=== PATIENT | female | born 1945 | race Caucasian/White ===

== ENCOUNTER 2022-06-03 14:12 | Inpatient (IN) | payer MEDICARE, OTHER, SELFPAY ==
[2022-06-03] VITALS (15 sets, daily range): BP systolic 154–224; BP diastolic 58–101; PULSE 63–87; RESP 14–18; TEMP 36.7–36.8; O2SAT 97–100; BMI 30.9; BMI 31.6
--- NOTE | ~2022-06-03 | XR_ITS ---
EXAMINATION: XR CHEST CLINICAL INFORMATION: Chest pain COMPARISON: None TECHNIQUE: AP portable upright view of the chest was obtained. FINDINGS: ECG leads overlie the chest. Heart and mediastinum grossly normal. No pulmonary edema. Mild bronchial wall thickening. No focal pneumonia. Blunting of the left lateral costophrenic angle on rotated radiograph most likely a normal epicardial fat pad. If symptoms persist suggest 2 view chest in follow-up. Nonobstructive gas pattern. No acute chest wall finding. XR/XR chest 1V IMPRESSION: Bronchial wall thickening on limited portable radiography.
--- NOTE | ~2022-06-03 | CT_ITS ---
EXAMINATION: CT HEAD WITHOUT CONTRAST CLINICAL INFORMATION: Left-sided weakness, stroke protocol. COMPARISON: None TECHNIQUE: Imaging was performed from the skull base to vertex without intravenous administration of contrast. This CT examination was performed using dose optimization techniques as appropriate, variously including the following: *Automated exposure control *Adjustment of mA and/or kV according to patient size (this includes techniques or standardized protocols for targeted exams where dose is matched to indication/reason for exam; i.e. extremities or head) *Use of iterative reconstruction technique Total exam dose length product: 723 mGy-cm FINDINGS: No intra or extra-axial fluid collection, hemorrhage, or mass. No ventriculomegaly. No midline shift or herniation. Basal cisterns are patent. Villegas-white matter differentiation is maintained. No territorial encephalomalacia. No significant volume loss. Patchy periventricular and deep white matter hypoattenuation is consistent with mild small vessel ischemic changes. Small linear focus of hypoattenuation in the body of the caudate extending into the lentiform nucleus compatible with a prior small infarct. Similar finding involving the left escudero radiata. No calvarial fracture or soft tissue abnormality. Partial opacification of a few inferior mastoid air cells bilaterally, nonspecific. Visualized paranasal sinuses are normally aerated. Status post bilateral lens extractions. CT/CT head for stroke IMPRESSION: 1. No intracranial hemorrhage. No acute edematous territorial infarct identified. 2. Mild chronic small vessel ischemic white matter change and small prior lacunar infarcts in the right basal ganglia and left escudero radiata. This critical result was discussed with Dr. Kamran Sam at 2:29 PM on 06/03/2022 and it was ascertained that the content and urgency of the report was understood at the time of direct communication.
--- NOTE | ~2022-06-03 | MR_ITS ---
EXAMINATION: MRI BRAIN WITHOUT CONTRAST CLINICAL INFORMATION: Status post tPA. Stroke. COMPARISON: CT angiogram head and neck 06/03/2022. TECHNIQUE: Multiplanar MR imaging of the brain was performed without contrast. FINDINGS: There is an acute infarct involving the posterior limb of the right internal capsule best depicted on axial image 19 of 32 series 3. Scattered nonspecific foci of T2 FLAIR signal hyperintense are also visualized within the periventricular white matter that most likely represent a chronic manifestation of small vessel ischemia. No pathological magnetic susceptibility artifact. Intracranial vascular flow voids are maintained. There is no intracranial mass effect or midline shift. No abnormal extra-axial collection. Lateral and third ventricles are proportionate to the subarachnoid spaces. No hydrocephalus. Midline structures including the cervicomedullary junction are normal. No acute bone marrow signal changes. There bilateral mastoid effusions. Mild paranasal sinus mucosal thickening within ethmoid air cells. Globes and orbits are symmetric. MR/MR head/brain wo con IMPRESSION: There is a small acute lacunar infarct involving the posterior limb of the right internal capsule. Scattered chronic small vessel ischemic changes are also visualized primarily within the periventricular white matter. No evidence of acute hemorrhage.
--- NOTE | ~2022-06-03 | CT_ITS ---
EXAMINATION: CTA NECK WITH CONTRAST (STROKE) CTA BRAIN WITH CONTRAST (STROKE) CLINICAL INFORMATION: Left-sided weakness, stroke. COMPARISON: CT scan of the head earlier 06/03/2022. TECHNIQUE: Test bolus series followed by intravenous administration 70 mL of Omnipaque 350. Helical imaging was performed in the axial plane from the mediastinum to the skull vertex. A delayed postcontrast CT scan of the head was obtained. The degree of stenosis is based off NASCET criteria. The data was processed at the fiber technologist workstation for generation of MIP images. Three-dimensional volume rendered reformatted images were also generated at an offline 3-D workstation. This CT examination was performed using dose optimization techniques as appropriate, variously including the following: *Automated exposure control *Adjustment of mA and/or kV according to patient size (this includes techniques or standardized protocols for targeted exams where dose is matched to indication/reason for exam; i.e. extremities or head) *Use of iterative reconstruction technique DLP: 1578 mGy-cm. FINDINGS: CT Head: There is equivocal low-attenuation in the left mid jese (image 17/54, series 13) which may be artifact. There is no evidence of acute intracranial hemorrhage or territorial infarction elsewhere. No abnormal mass-effect or midline shift is seen. Villegas to white matter differentiation is well preserved. No extra-axial fluid collections are identified. There is no abnormal enhancement. The ventricles and sulci are commensurately prominent consistent with diffuse volume loss. There are scattered areas of low-attenuation in the periventricular and subcortical white matter consistent with chronic microvascular ischemic changes. The study redemonstrates areas of low-attenuation in the basal ganglia bilaterally, consistent with chronic infarcts. There are no acute osseous findings. There is hyperostosis frontalis interna. There have been bilateral lens extractions. There is mild fluid at the bilateral mastoid tips. There is slight irregularity of the nasal bones bilaterally, most consistent with sequelae of prior trauma. The paranasal sinuses are well-aerated. CTA Neck: There is a classic configuration of the aortic arch. The great vessels of the neck are patent; the origins of the subclavian arteries are patent bilaterally. The common carotid arteries are patent. There are mild atheromatous calcifications at the right carotid bifurcation, without significant stenosis. The cervical internal carotid arteries are patent bilaterally. The origins of the vertebral arteries are well-demonstrated bilaterally. The left vertebral artery is dominant. Both vertebral arteries are patent throughout their cervical course extending intradurally. Nonvascular: The visualized lungs are well aerated. The thyroid gland is normal. There is no cervical lymphadenopathy; there are small lymph nodes at multiple levels in the neck bilaterally. There are mild spondylitic and facet arthropathic changes in the cervical spine. CTA Head: There are mild atheromatous calcifications of the cavernous internal carotid arteries bilaterally, but the vessels are patent. The carotid termini appear normal. The middle and anterior cerebral arteries bilaterally demonstrate normal caliber with no evidence of focal stenosis, aneurysm or vascular malformation. There is normal arborization of the middle cerebral artery branches. The anterior communicating artery is normal. In the posterior circulation, the left vertebral artery is dominant. The vertebral arteries intradurally have uniform caliber. The basilar artery appears normal. There is a origin of the left posterior cerebral artery. There is mild narrowing at the P1/P2 segment of the left posterior cerebral artery and there is also irregular caliber of the bilateral P2 and P3 segments of the posterior cerebral arteries. There is irregular caliber of the bilateral superior cerebellar arteries. The venous sinuses opacify normally. CT/CT angio head neck stroke IMPRESSION: CT head and neck: 1. There is an equivocal area of low attenuation in the left lower jese, which is likely artifact. If indicated, this could be further evaluated with MRI scan of the brain. There is no evidence of acute infarction elsewhere. 2. There is no acute hemorrhage. There are no masses or areas of abnormal enhancement. 3. There is diffuse volume loss and there are chronic microvascular ischemic changes and chronic infarcts. CTA head and neck: 1. There is minimal atheromatous calcification in the neck vasculature. There are no flow-limiting stenoses. 2. Intracranially there are no vascular malformations or aneurysms. 3. Mild irregular caliber is demonstrated in the posterior cerebral arteries. There are no focal occlusions. This critical result was discussed with Dr. Kamran Sam by telephone on 06/03/2022 at 3:03 PM and it was ascertained that the content and urgency of the report was understood at the time of direct communication.
--- NOTE | 2022-06-03 14:18 | ECG_ITS ---
Test Reason : stroke Blood Pressure : / mmHG Vent. Rate : 082 BPM Atrial Rate : 082 BPM P-R Int : 174 ms QRS Dur : 078 ms QT Int : 394 ms P-R-T Axes : 077 034 076 degrees QTc Int : 460 ms Normal sinus rhythm Nonspecific ST abnormality Abnormal ECG No previous ECGs available Referred By: Kamran Sam Electronically Signed By:ANIA FREIRE MD
[2022-06-03 14:23] LABS: Glucose, Whole Blood 131 mg/dL (60-115)
[2022-06-03 14:25] LABS: Prothrombin Time Whole Bld POC 11.3 sec (11.1-13.5); ~PT, ~INR - Anti Coag Clinic 0.9 (0.9-1.1)
--- NOTE | 2022-06-03 14:31 | ED.NEUROSD ---
HPI - Neuro Symptoms/Deficit General Chief Complaint: Neuro Symptoms/Deficit Stated Complaint: L SIDE FACE DROOP,TROUBLE FINDING WORDS,NAP @ NOON Time Seen by Provider: 06/03/22 14:16 Source: EMS Mode of arrival: EMS History of Present Illness HPI Narrative: Patient was seen on arrival to the emergency department, she presented there with the left-sided weakness slurred speech she went to take a nap around noontime when she woke up are 130 with the facial droop left-sided weakness. Patient is not on anticoagulation she has no significant medical problem but hypertension Onset (ago): hour(s) (1) Location: speech, left arm and left leg History of same: No Severity: moderate Quality: weak Relieving factors: none Exacerbating factors: none Context: sudden onset Associated symptoms: denies other symptoms Related Data Home Medications Medication Instructions Recorded Confirmed losartan 50 mg tablet 1 tab DAILY 06/03/22 06/03/22 prochlorperazine maleate 10 mg 1 tab PO DAILY 06/03/22 06/03/22 tablet tobramycin 0.3 % eye drops 2 drp ophthalmic (eye) TID 06/03/22 06/03/22 Allergies Allergy/AdvReac Type Severity Reaction Status Date / Time No Known Allergies Allergy Verified 06/03/22 14:17 Review of Systems Constitutional: Constitutional: Reports no additional constitutional complaints Eyes: Eyes: Reports no additional eye complaints Musculoskeletal: Musculoskeletal: Reports no additional musculoskeletal complaints Neurologic: Reports system reviewed and no additional complaints, except as documented and Reports as per HPI [facility] Past Medical History [facility] Narrative: hypertension Medical History (Updated 06/03/22 @ 15:12 by Kamran Sam MD) Facial tic HTN (hypertension) Social History Social History Alcohol intake: never Patient Tobacco Use Status: Former Tobacco user Smoked in Last 30 Days: Yes Use of substances other than those prescribed or required for medical reasons: No Advance Directives: No Advance Directives Information Provided: No Physical Exam Vital Signs: Vital Signs: Last Vital Signs Temp 98.3 F 06/03/22 16:54 Pulse 77 06/03/22 18:39 Resp 18 06/03/22 18:39 BP 193/78 H 06/03/22 18:39 Pulse Ox 98 06/03/22 18:39 O2 Del Method 06/03/22 18:39 BMI result Body Mass Index 30.9 Const: General: cooperative Nutritional Appearance: average body habitus Orientation/consciousness: patient oriented x3 HEENT: Head: Yes normal to inspection Ears: hearing grossly normal bilaterally Face and sinus: Yes other ( left facial droop) Mouth: Normal oral and palatal mucosa present Neck: Neck: Yes normal visual inspection and Yes full ROM Chest: Chest palpation & inspection: normal inspection of the chest Resp: Effort & Inspection: normal respiratory effort and able to speak in complete sentences Auscultation: clear to auscultation bilaterally Cardio: Jugular venous distension: no JVD Rate: regular rate Rhythm: regular rhythm GI: Inspection: Yes normal to inspection Palpation (GI): Soft to palpation and not firm Percussion: Yes normal to percussion : General: Yes no CVA tenderness Back/Spine/Pelvis: Back: no CVA tenderness Neuro: Other: she a is awake and alert he has a left facial droop left arm drift left leg weakness General: patient oriented x3 Course Course Course Narrative: patient presented with the deficit within the window for tPA, risk and benefit discussed with the patient and the granddaughter, they both agree with the tPA is a we will go ahead the administer the tPA Reevaluation(s) Reevaluation #1: TPA is infusing family at bed side granddaughter Time: 15:12 Reevaluation #2: seen by neuroi also Dr Hanny BECKWITH completed Time: 16:06 Reevaluation #3: Spoke with ICU attending Dr Hamilton Time: 16:06 MDM - Neuro Symptoms/Deficit Lab Data Result diagrams: 06/03/22 14:50 06/03/22 14:50 Labs: Lab Results 06/03/22 06/03/22 06/03/22 Range/Units 14:18 14:21 14:50 WBC 7.5 (4.8-10.8) X10*3/uL RBC 4.58 (4.20-5.50) X10*6/uL Hgb 12.9 (12.0-16.0) g/dl Hct 39.3 (37.0-47.0) % MCV 85.8 (80.0-98.0) fL MCH 28.2 (27.0-33.0) pg MCHC 32.8 (31.0-35.0) g/dl RDW 13.7 (11.0-16.0) % Plt Count 211 (160-400) X10*3/uL MPV 8.3 L (9.4-12.3) fL Immature Gran % (Auto) 0.4 (0.0-0.4) % Neut % (Auto) 52.5 (45-73) % Lymph % (Auto) 34.1 (20-40) % Elliott % (Auto) 9.4 (2-11) % Eos % (Auto) 3.2 (0-4) % Baso % (Auto) 0.4 (0-2) % Lymph # (Auto) 2.6 (1.2-4.9) X10*3/uL Elliott # (Auto) 0.7 (0.1-1.2) X10*3/uL Eos # (Auto) 0.2 (0.0-0.4) X10*3/uL Baso # (Auto) 0.0 (0.0-0.2) X10*3/uL Abs Immat Gran (auto) 0.03 (0.00-0.03) X10*3/uL Absolute Neuts (auto) 4.0 (2.0-8.3) x10*3/uL Absolute Nucleated RBC 0.000 (0.0-0.012) X10*3/uL Nucleated RBC % (auto) 0.0 (0.0-0.2) /100WBC PT (10.0-13.1) SEC Whole Blood PT 11.3 (11.1-13.5) sec INR (0.9-1.1) Whole Blood INR 0.9 (0.9-1.1) Sodium (135-145) mmol/L Potassium (3.3-5.1) mmol/L Chloride (96-108) mmol/L Carbon Dioxide (22-29) mmol/L Anion Gap (12-20) BUN (9-16) mg/dL Creatinine (0.5-1.4) mg/dL Estim Creat Clear Calc Estimated GFR POC Glucose 131 H (60-115) mg/dL Random Glucose (60-115) mg/dL Calcium (8.4-10.2) mg/dL Troponin I High Sens (<3.5-17.0) ng/L COVID-19 (GENE) (Negative) COVID-19 Clin Com 07/14/22 07/14/22 07/14/22 Range/Units 14:50 14:50 14:50 WBC (4.8-10.8) X10*3/uL RBC (4.20-5.50) X10*6/uL Hgb (12.0-16.0) g/dl Hct (37.0-47.0) % MCV (80.0-98.0) fL MCH (27.0-33.0) pg MCHC (31.0-35.0) g/dl RDW (11.0-16.0) % Plt Count (160-400) X10*3/uL MPV (9.4-12.3) fL Immature Gran % (Auto) (0.0-0.4) % Neut % (Auto) (45-73) % Lymph % (Auto) (20-40) % Elliott % (Auto) (2-11) % Eos % (Auto) (0-4) % Baso % (Auto) (0-2) % Lymph # (Auto) (1.2-4.9) X10*3/uL Elliott # (Auto) (0.1-1.2) X10*3/uL Eos # (Auto) (0.0-0.4) X10*3/uL Baso # (Auto) (0.0-0.2) X10*3/uL Abs Immat Gran (auto) (0.00-0.03) X10*3/uL Absolute Neuts (auto) (2.0-8.3) x10*3/uL Absolute Nucleated RBC (0.0-0.012) X10*3/uL Nucleated RBC % (auto) (0.0-0.2) /100WBC PT 11.0 (10.0-13.1) SEC Whole Blood PT (11.1-13.5) sec INR 1.0 (0.9-1.1) Whole Blood INR (0.9-1.1) Sodium 136 (135-145) mmol/L Potassium 3.9 (3.3-5.1) mmol/L Chloride 104 (96-108) mmol/L Carbon Dioxide 24 (22-29) mmol/L Anion Gap 12 (12-20) BUN 14 (9-16) mg/dL Creatinine 1.25 (0.5-1.4) mg/dL Estim Creat Clear Calc 40.2 Estimated GFR 42 POC Glucose (60-115) mg/dL Random Glucose 124 H (60-115) mg/dL Calcium 8.3 L (8.4-10.2) mg/dL Troponin I High Sens < 3.5 (<3.5-17.0) ng/L COVID-19 (GENE) (Negative) COVID-19 Clin Com 06/03/22 Range/Units 14:56 WBC (4.8-10.8) X10*3/uL RBC (4.20-5.50) X10*6/uL Hgb (12.0-16.0) g/dl Hct (37.0-47.0) % MCV (80.0-98.0) fL MCH (27.0-33.0) pg MCHC (31.0-35.0) g/dl RDW (11.0-16.0) % Plt Count (160-400) X10*3/uL MPV (9.4-12.3) fL Immature Gran % (Auto) (0.0-0.4) % Neut % (Auto) (45-73) % Lymph % (Auto) (20-40) % Elliott % (Auto) (2-11) % Eos % (Auto) (0-4) % Baso % (Auto) (0-2) % Lymph # (Auto) (1.2-4.9) X10*3/uL Elliott # (Auto) (0.1-1.2) X10*3/uL Eos # (Auto) (0.0-0.4) X10*3/uL Baso # (Auto) (0.0-0.2) X10*3/uL Abs Immat Gran (auto) (0.00-0.03) X10*3/uL Absolute Neuts (auto) (2.0-8.3) x10*3/uL Absolute Nucleated RBC (0.0-0.012) X10*3/uL Nucleated RBC % (auto) (0.0-0.2) /100WBC PT (10.0-13.1) SEC Whole Blood PT (11.1-13.5) sec INR (0.9-1.1) Whole Blood INR (0.9-1.1) Sodium (135-145) mmol/L Potassium (3.3-5.1) mmol/L Chloride (96-108) mmol/L Carbon Dioxide (22-29) mmol/L Anion Gap (12-20) BUN (9-16) mg/dL Creatinine (0.5-1.4) mg/dL Estim Creat Clear Calc Estimated GFR POC Glucose (60-115) mg/dL Random Glucose (60-115) mg/dL Calcium (8.4-10.2) mg/dL Troponin I High Sens (<3.5-17.0) ng/L COVID-19 (GENE) Negative (Negative) COVID-19 Clin Com See Note Imaging Data CT scan - head: Radiologist's impression: ent with mild small vessel ischemic changes. Small linear focus of hypoattenuation in the body of the caudate extending into the lentiform nucleus compatible with a prior small infarct. Similar finding involving the left escudero radiata. No calvarial fracture or soft tissue abnormality.? Partial opacification of a few inferior mastoid air cells bilaterally, nonspecific. Visualized paranasal sinuses are normally aerated. Status post bilateral lens extractions. CT/CT head for stroke IMPRESSION: ? 1. No intracranial hemorrhage. No acute edematous territorial infarct identified. 2. Mild chronic small vessel ischemic white matter change and small prior lacunar infarcts in the right basal ganglia and left escudero radiata. ? This critical result was discussed with Dr. Kamran Sam at 2:29 PM on 06/03/2022 and it was ascertained that the content and urgency of the report was understood at the time of direct communication. ? ? Dictated By: Dread Mccarthy Signed By: <Electronically signed by Gabriel Mccarthy in OV> 06/03/22 1433 ECG Data Pacemaker model: normal sinus rhythm rate [address]-T changes NIH Stroke Scale Internal: Initial- Upon Arrival Level of Consciousness: Alert Level of Consciousness Questions: Answers both questions correctly Level of Consciousness Commands: Performs both tasks correctly Best Gaze: Normal Visual: No visual loss Facial Palsy: Minor paralyis Motor Arm (Right): No drift Motor Arm (Left): Drift Motor Leg (Right): Some effort against gravity Motor Leg (Left): Drift Limb Ataxia: Absent Sensory: Normal Best Language: Mild to moderate aphasia Dysarthia: Mild to moderate dysarthria Extinction and Inattention: No abnormality Score: 7 Critical Care Time Critical Care Time Critical Care Time: Yes Total Critical Care Time: 60 Attestation: speaking to EMS/Family/specialist/administred TPA Discharge Plan Discharge Clinical Impression: Cerebrovascular accident Patient Disposition: Admitted As Inpatient
[2022-06-03] MEDS: iohexoL 350 MG/ML 100 ML INFUS..BTL IV (14:40)
--- NOTE | 2022-06-03 14:41 | PC.NURSE ---
CONSENT VERBALLY OBTAINED BY MD AT BEDSIDE.
[2022-06-03 14:55] LABS: MANUAL DIFF FLAG NO
[2022-06-03 14:58] LABS: Basophils Percent Auto 0.4 % (0-2); Eosinophils Absolute Auto 0.2 X10*3/uL (0.0-0.4); Eosinophils Percent Auto 3.2 % (0-4); Hematocrit 39.3 % (37.0-47.0); Hemoglobin 12.9 g/dl (12.0-16.0); Imm Gran Abs Auto 0.03 X10*3/uL (0.00-0.03); Imm Gran Pct Auto 0.4 % (0.0-0.4); Lymphocytes Absolute Auto 2.6 X10*3/uL (1.2-4.9); Lymphocytes Percent Auto 34.1 % (20-40); Mean Corpuscular HGB Conc 32.8 g/dl (31.0-35.0); Mean Corpuscular Hemoglobin 28.2 pg (27.0-33.0); Mean Corpuscular Volume 85.8 fL (80.0-98.0); Mean Platelet Volume 8.3 fL (9.4-12.3); Monocytes Absolute Auto 0.7 X10*3/uL (0.1-1.2); Monocytes Percent Auto 9.4 % (2-11); Neutrophils Percent Auto 52.5 % (45-73); Platelet Count 211 X10*3/uL (160-400); Red Blood Count 4.58 X10*6/uL (4.20-5.50); Red Cell Distribution Width 13.7 % (11.0-16.0); White Blood Count 7.5 X10*3/uL (4.8-10.8)
[2022-06-03 15:10] LABS: Anion Gap 12 (12-20); Blood Urea Nitrogen 14 mg/dL (9-16); Calcium 8.3 mg/dL (8.4-10.2); Carbon Dioxide 24 mmol/L (22-29); Chloride 104 mmol/L (96-108); Creatinine Clr Calc Pharmacy 40.2; Estimated Glomerular Filt Rate 42; Glucose Random 124 mg/dL (60-115); Potassium 3.9 mmol/L (3.3-5.1); Sodium 136 mmol/L (135-145)
[2022-06-03 15:17] LABS: COVID-19 Test Negative (Negative); IDNOW Serial# 16C4AD1C
[2022-06-03 15:20] LABS: Troponin-I High Sensitivity < 3.5 ng/L (<3.5-17.0)
[2022-06-03 15:26] LABS: Stroke Lab Use COMPLETE
--- NOTE | 2022-06-03 16:22 | PM.NEUROCN ---
History of Present Illness Data of Consult Service Date: 06/03/22 Primary Care Provider: Yeyo Gore MD [facility] Reason for consult: Cerebral infarcts 76 years old woman with underlying history of hypertension came to hospital with new onset of slurred speech and left-sided weakness. It was acute in she was evaluated for acute stroke and after appropriate consideration was treated with intravenous tPA. I saw her afterwards. At that time her family was around her and she was feeling much better but still had some left-sided weakness. There was no nausea or vomiting headache blurred vision or double vision. Speech has improved. Review of Systems Review of Systems: No recent cold or flu-like illness PMFSH Past Medical History Medical History (Updated 06/03/22 @ 15:12 by Kamran Sam MD) Facial tic HTN (hypertension) Social History Social History Alcohol intake: never Patient Tobacco Use Status: Former Tobacco user Smoked in Last 30 Days: Yes Use of substances other than those prescribed or required for medical reasons: No Advance Directives: No Advance Directives Information Provided: No Meds Allergies Allergy/AdvReac Type Severity Reaction Status Date / Time No Known Allergies Allergy Verified 06/03/22 14:17 Physical Exam Vital Signs: Vital Signs: Last Vital Signs Pulse 69 06/03/22 16:00 Resp 16 06/03/22 16:00 BP 186/82 H 06/03/22 16:00 Pulse Ox 99 06/03/22 16:00 O2 Del Method 06/03/22 16:00 BMI result Body Mass Index 30.9 Neuro: Other: She was alert and awake with normal spontaneity of speech fluency comprehension and affect. There was mild left-sided facial flatness. There was mild left arm and leg weakness. Plantars were flat. Deep tendon reflexes were trace to 1+. With double simultaneous stimulation she did not perceive on left leg. [id number] testing was okay though she has difficulty performing with left arm. Speech was okay Results Labs CBC & Chem 7: 06/03/22 14:50 06/03/22 14:50 Labs: Short CBC 06/03/22 Range/Units 14:50 WBC 7.5 (4.8-10.8) X10*3/uL Hgb 12.9 (12.0-16.0) g/dl Hct 39.3 (37.0-47.0) % Plt Count 211 (160-400) X10*3/uL [facility] 06/03/22 14:50 Sodium 136 Potassium 3.9 Chloride 104 Carbon Dioxide 24 BUN 14 Creatinine 1.25 Calcium 8.[address] revealed [id number] chronic microvascular ischemic changes. CTA of brain and neck did not reveal any significant vascular stenosis. Assessment and Plan (1) Cerebrovascular accident: Status: Acute 76 years old woman with uncontrolled hypertension who probably suffered from her right subcortical ischemic infarction. After management of hypertension she was treated with intravenous tPA with physical findings of left hemiparesis and dysarthria. After tPA her symptoms and signs significantly improved. When I saw her she still had mild left hemiparesis. Her blood pressure has somewhat improved. Mainstay of management at this time is blood pressure control as per tPA protocol with admission to ICU. I would recommend noncontrast MRI of brain and after 24 hours of tPA, starting her on Plavix 75 mg daily. Fasting lipid profile is also recommended. No blood thinners are recommended during next 24 hours per Procedures Date of Service Date of Service: 06/03/22
--- NOTE | 2022-06-03 17:00 | PC.NURSE ---
Repeat neuro exam: improved LLE movement. pt reports increase weakness in LUE. MD aware. Permissively HTN remains. Speak remains hesitant but clear. - issues with word finding.
--- NOTE | 2022-06-03 17:04 | PHA.MEDREC ---
Pharmacy Consult ? Medication Reconciliation Pharmacy has completed the medication reconciliation.SPOKE WITH PT AT BEDSIDE. FAMILY MEMBER ALSO PRESENT
--- NOTE | 2022-06-03 18:39 | PC.NURSE ---
this rn to bedside. pt requesting po. okay to trial per md. pt passed swallow eval with no difficulties. pt given gingerale and tolerating well. family at bedside.
[2022-06-03] MEDS: 0.9 % Sodium Chloride Flush 3 ML SYRINGE IVFLUSH ×2 (20:23→22:55)
[2022-06-03] MEDS: Atorvastatin Calcium 80 MG TABLET PO (21:31)
[2022-06-03] MEDS: Tobramycin Sulfate 0.3% Sol Op 5 ML BTL 2 DROP EYE-BOTH (21:31)
[2022-06-03 21:33] LABS: Glucose, Whole Blood 113 mg/dL (60-115)
--- NOTE | 2022-06-03 22:59 | PM.CCHP ---
History of Present Illness Date of Service: 06/03/22 Attending physician on admission: Isaias Hamilton Chief Complaint: I woke up from a nap and I felt weird HPI: ?76-year-old with history of hypertension, who has been experiencing lightheadedness for approximately 1 month and had gone to the primary care physician who initially thought it was related to her blood pressure medication took her off it for about a month, symptoms continued, patient was diagnosed with benign positional vertigo but her symptoms did not resolve.? Today while at home, she woke up from a nap approximately at 130 p.m. started to feel some weakness of the left upper no lower extremity more so the left lower extremity in a sling her to walk properly and feeling that her gait was deviating towards the left side, she felt a weird sensation on her face, she was also having difficulty expressing herself so she has her daughter call 911, but denies any headache, double or blurry vision, problems understanding, no falls or syncope. On arrival to the emergency room, the patient was noted to have left facial droop, left upper and left lower extremity weakness, stroke protocol was called, her overall NIH was 7, she did have a head CT which was negative for intracranial hemorrhage, chronic small vessel ischemia and white matter changes with small prior lacunar infarcts in the right basal ganglia and left escudero radiata. ?Patient also underwent a head and neck CT angiogram which showed 1. There is minimal atheromatous calcification in the neck vasculature. There are no flow-limiting stenoses. 2. Intracranially there are no vascular malformations or aneurysms. 3. Mild irregular caliber is demonstrated in the posterior cerebral arteries. There are no focal occlusions. ? Neurologist Dr. Abreu had been consulted, decision to administer tPA had been made, given that her blood pressure was above 180, patient received labetalol IV prior to tPA administration, patient did receiTPA around 14:30.? Since then the patient's symptoms have gotten better, her facial droop is only result, her ability speak is almost normal and they weakness of the upper and lower extremities is much better according to the patient.? Currently denies any other symptomatology as described above or in the review of systems. ?As discussed with ER physician, the patient's blood pressure is still elevated above 180, 10 mg of labetalol IV will be given in the ER prior to transfer to ICU. ? ROS: As above, otherwise the patient denies any prior history of strokes, cold intolerance, migraine headaches, head trauma, no eyes, ears or nose problems, no problems swallowing or with phonation, no thyroid disease, denies any history of chest pain, palpitations, coronary disease, cough, sputum production, pneumonia, bronchitis, COPD or emphysema, abdominal pain, nausea, vomiting, diarrhea, abdominal surgeries, melena, hematochezia, hematemesis, hematuria, kidney stones, liver problems, immunocompromise state of any kind, no history of DVT or PE, leg edema, fractures or extremity surgeries all other review of systems were reviewed and they were all negative. ? Past Medical History:? As above ? Past Surgical History: Cholecystectomy ? Family history:? Both of her brothers have had strokes.? Both mom and dad had coronary disease.? Her father was diabetic. ? Social History:? Patient lives at home with 1 of her daughters, does not use a walker or cane.? She has a 20 pack-year history of tobacco consumption quit 25 years ago.? She also was an alcoholic and quit drinking approximately 15-20 years ago.? Denies any drugs. ? CODE STATUS: FULL CODE ? Allergies: NKDA ? Home Medications: Losartan 50 mg daily Prochlorperazine malleate 10 mg 1 tablet daily Tobramycin 0.3% drops 2 drops to left eye t.i.d. ? PHYSICAL EXAM: VS: ?188/80, 65, 14, 98% on room air General:? Alert oriented x3 no acute distress.? Speaking full sentences.? Speech is well articulated, although slow thought process is coherent.? Following all commands.? Minimal facial droop on the left side is noted. Skin:? Intact, no lesions, edema, erythema, clubbing or cyanosis.? No ulcers. HEENT:? Head is normocephalic, atraumatic, pupils equal round reactive to light accommodation bilaterally.? Extraocular movements appear intact. ?Visual landry are intact bilaterally Buccal mucosa is moist, tongue protrudes midline without any deviation, Neck is supple without lymphadenopathy, no masses or bruits. Cardiac:? Clear S1-S2, no murmurs rubs or gallops. Pulmonary:? Clear to auscultation, no wheezes, rales or rhonchi. Abdomen:? Protuberant, positive bowel sounds in all 4 quadrants.? Soft, nontender, no rebound or guarding.? Musculoskeletal:? Moving all 4 extremities upon request a major joints, without limitations or problems on the right upper and lower extremity.? In comparison to the left upper and lower extremities have weakness at 2+ over 5 of the left upper extremity in comparison to the right upper extremity and 3 +over 5 at the left lower extremity in comparison to the right lower extremity all on flexion-extension with resistance.? Hand towel distributor is also 3/5 on the left in comparison to 5/5 on the right. Neurologic:? As above, facial droop, motor weakness, in addition there is a clear pronator drift.? Ataxia is noted with the left upper extremity on finger to nose test, [id number] test. ?Gait was not assessed at this point.? Sensation is intact bilaterally to light, sharp and dull touch. Vascular:? 2+ pulses upper and lower extremities distally. ? SIGNIFICANT LABORATORY DATA:? White blood cell 7.5, hemoglobin 12.9, hematocrit 39.3, platelets 211, sodium 136, potassium 3.9, chloride 1 4, carbon dioxide 24, anion gap 12, BUN 14, creatinine 1.25, random glucose 124, calcium 8.3, troponin less than 3.5.? COVID negative. ? ? REVIEW OF IMAGES: ?As above ? Chest x-ray IMPRESSION: Bronchial wall thickening on limited portable radiography. ? EKG REVIEW: ?To my view disease sinus rhythm 82 beats per minute.? There is no ST elevations, no ST depressions. ?Flat T-waves are noted on aVL. ?QTC is 394, no comparison. ? ASSESSMENT AND PLAN: 1. Acute ischemic stroke likely right-sided with left facial drooping, left upper and lower extremity weakness, NIH of 7 status post tPA with improvement of symptomatology post administration. 2. Uncontrolled hypertension (patient did not take her blood pressure medication and she is anxious) 3. Gastric reflux symptoms 4. Pseudo hypocalcemia ? PLAN OF CARE: 1.? Patient will be admitted to the ICU, monitor I's and O's, patient passed swallow eval, Lipitor 80 mg x1 daily will be ordered, LFTs to be checked in the morning, lipid profile.? Protocol neuro checks. 2.? Head of the bed at 30 degree angle, allow liberalized blood pressure but will treat if her blood pressure is above 180 to avoid any type of risk of bleeding however avoiding hypotension. 3.? Patient was did it will instructed on symptoms to report such as headache, double or blurred vision, worsening weakness or paresthesias or any other symptom that is not present at this point I will alert us to repeat a head CT to rule out intracranial conversion. 4.? MRI ordered for tomorrow to p.m. 5.? 24 hours after tPA administration Plavix 75 mg p.o. daily as recommended by neurologist 6.? PT, OT and speech evaluation ordered ? GI PROPHYLAXIS: Given her symptoms of GERD omeprazole ordered DVT PROPHYLAXIS: ?Pneumatic stockings while in bed only, no NSAIDs, aspirin for the next 24 hours. ? Critical care time used for critical evaluation of this patient, diagnosis, treatment and coordination of care, review her records and documentation TOTAL CRITICAL CARE TIME 90 MIN . Patient's care was discussed in detail with Dr. Hamilton.? He is aware of all the above as well as the plan of care for this patient. [facility]LY [facility] Past Medical History Medical History (Updated 06/04/22 @ 11:25 by Josh Abreu MD) Facial tic HTN (hypertension) Social History Social History Household Members: Children Housing: House Do you presently have visiting nurse or other home services: No Alcohol intake: never Patient Tobacco Use Status: Former Tobacco user Smoked in Last 30 Days: Yes Use of substances other than those prescribed or required for medical reasons: No Currently Displaying Signs/Symptoms of Drug Intoxication Withdrawal: No Have you been hit, kicked, punched, or otherwise hurt by someone within the past year? If so, by whom?: No Do you feel safe in your current relationship?: No Current Relationship Is there a partner from a previous relationship who is making you feel unsafe now?: No Are you made to feel afraid or neglected: No Advance Directives: No Advance Directives Information Provided: No Do you have thoughts of harming others: None Do you have a plan to hurt others: No Plan Recently lost weight without trying: No Nutrition Risks: No Nutritional Risk Patient : No service: No Current occupational status: unemployed Meds Allergies Allergy/AdvReac Type Severity Reaction Status Date / Time No Known Allergies Allergy Verified 06/03/22 14:17 Active Medications: Current Medications Omeprazole (Omeprazole 20 Mg/10 Ml Susp.Recon) 40 mg PO DAILY@0630 [facility] Last Admin: 06/03/22 22:54 Dose: 40 mg Sodium Chloride (0.9 % Sodium Chloride Flush 3 Ml Syringe) 3 ml IVFLUSH QSHIFT [facility] Last Admin: 06/03/22 22:55 Dose: 3 ml Tobramycin Sulfate (Tobramycin Sulfate 0.3% Lashay Op 5 Ml Btl) 2 drop EYE-BOTH TID [facility] Last Admin: 06/03/22 21:31 Dose: 2 drop Home Medications Medication Instructions Recorded Confirmed Last Taken Type losartan 50 mg tablet 1 tab DAILY 06/03/22 06/03/22 06/03/22 History prochlorperazine maleate 10 mg 1 tab PO DAILY 06/03/22 06/03/22 06/03/22 History tablet tobramycin 0.3 % eye drops 2 drp ophthalmic (eye) TID 06/03/22 06/03/22 06/03/22 History Physical Exam Vital Signs: Vital Signs: Last Vital Signs Temp 98.1 F 06/03/22 21:21 Pulse 65 06/03/22 22:30 Resp 14 06/03/22 22:30 BP 188/80 H 06/03/22 22:30 Pulse Ox 98 06/03/22 22:30 O2 Del Method 06/03/22 22:30 BMI result Body Mass Index 31.6 Results Labs CBC and Chem 7: 06/04/22 05:28 06/04/22 05:28 Labs: Laboratory Results - last 24 hr 06/03/22 06/03/22 06/03/22 14:18 14:21 14:50 MCV 85.8 MCH 28.2 MCHC 32.8 RDW 13.7 Plt Count 211 MPV 8.3 L Immature Gran % (Auto) 0.4 Neut % (Auto) 52.5 Lymph % (Auto) 34.1 [place] % (Auto) 9.4 Eos % (Auto) 3.2 Baso % (Auto) 0.4 Lymph # (Auto) 2.6 [place] # (Auto) 0.7 Eos # (Auto) 0.2 Baso # (Auto) 0.0 Abs Immat Gran (auto) 0.03 Absolute Neuts (auto) 4.0 Absolute Nucleated RBC 0.000 Nucleated RBC % (auto) 0.0 PT Whole Blood PT 11.3 INR Whole Blood INR 0.9 Anion Gap Estim Creat Clear Calc Estimated GFR POC Glucose 131 H Random Glucose Calcium Troponin I High Sens COVID-19 (GENE) COVID-19 Clin Com 06/03/22 06/03/22 06/03/22 14:50 14:50 14:50 MCV MCH MCHC RDW Plt Count MPV Immature Gran % (Auto) Neut % (Auto) Lymph % (Auto) [place] % (Auto) Eos % (Auto) Baso % (Auto) Lymph # (Auto) [place] # (Auto) Eos # (Auto) Baso # (Auto) Abs Immat Gran (auto) Absolute Neuts (auto) Absolute Nucleated RBC Nucleated RBC % (auto) PT 11.0 Whole Blood PT INR 1.0 Whole Blood INR Anion Gap 12 Estim Creat Clear Calc 40.2 Estimated GFR 42 POC Glucose Random Glucose 124 H Calcium 8.3 L Troponin I High Sens < 3.5 COVID-19 (GENE) COVID-19 Clin Com 06/03/22 06/03/22 14:56 21:27 MCV MCH MCHC RDW Plt Count MPV Immature Gran % (Auto) Neut % (Auto) Lymph % (Auto) [place] % (Auto) Eos % (Auto) Baso % (Auto) Lymph # (Auto) [place] # (Auto) Eos # (Auto) Baso # (Auto) Abs Immat Gran (auto) Absolute Neuts (auto) Absolute Nucleated RBC Nucleated RBC % (auto) PT Whole Blood PT INR Whole Blood INR Anion Gap Estim Creat Clear Calc Estimated GFR POC Glucose 113 Random Glucose Calcium Troponin I High Sens COVID-19 (GENE) Negative COVID-19 Clin Com See Note Imaging Radiologist's Impressions: Impressions Head CT 06/03/22 14:24 IMPRESSION: 1. No intracranial hemorrhage. No acute edematous territorial infarct identified. 2. Mild chronic small vessel ischemic white matter change and small prior lacunar infarcts in the right basal ganglia and left escudero radiata. This critical result was discussed with Dr. Kamran Sam at 2:29 PM on 06/03/2022 and it was ascertained that the content and urgency of the report was understood at the time of direct communication. Head/Neck CTA 06/03/22 14:38 IMPRESSION: CT head and neck: 1. There is an equivocal area of low attenuation in the left lower jese, which is likely artifact. If indicated, this could be further evaluated with MRI scan of the brain. There is no evidence of acute infarction elsewhere. 2. There is no acute hemorrhage. There are no masses or areas of abnormal enhancement. 3. There is diffuse volume loss and there are chronic microvascular ischemic changes and chronic infarcts. CTA head and neck: 1. There is minimal atheromatous calcification in the neck vasculature. There are no flow-limiting stenoses. 2. Intracranially there are no vascular malformations or aneurysms. 3. Mild irregular caliber is demonstrated in the posterior cerebral arteries. There are no focal occlusions. This critical result was discussed with Dr. Kamran Sam by telephone on 06/03/2022 at 3:03 PM and it was ascertained that the content and urgency of the report was understood at the time of direct communication. Chest X-Ray 06/03/22 16:30
[2022-06-03] MEDS: Labetalol HCL 100 MG TABLET PO (23:06)
[2022-06-04] VITALS (28 sets, daily range): BP systolic 117–191; BP diastolic 41–92; PULSE 62–90; RESP 12–20; TEMP 35.7–37.1; O2SAT 94–98; BMI 30.9
[2022-06-04 05:50] LABS: MANUAL DIFF FLAG NO
[2022-06-04 05:54] LABS: Basophils Absolute Auto 0.1 X10*3/uL (0.0-0.2); Basophils Percent Auto 0.5 % (0-2); Eosinophils Absolute Auto 0.2 X10*3/uL (0.0-0.4); Eosinophils Percent Auto 2.1 % (0-4); Hematocrit 36.8 % (37.0-47.0); Imm Gran Abs Auto 0.05 X10*3/uL (0.00-0.03); Imm Gran Pct Auto 0.5 % (0.0-0.4); Lymphocytes Absolute Auto 2.5 X10*3/uL (1.2-4.9); Lymphocytes Percent Auto 24.8 % (20-40); Mean Corpuscular HGB Conc 32.6 g/dl (31.0-35.0); Mean Corpuscular Hemoglobin 28.3 pg (27.0-33.0); Mean Corpuscular Volume 86.8 fL (80.0-98.0); Mean Platelet Volume 8.5 fL (9.4-12.3); Monocytes Absolute Auto 0.9 X10*3/uL (0.1-1.2); Monocytes Percent Auto 8.4 % (2-11); Neutrophils Absolute Auto 6.4 x10*3/uL (2.0-8.3); Neutrophils Percent Auto 63.7 % (45-73); Platelet Count 199 X10*3/uL (160-400); Red Blood Count 4.24 X10*6/uL (4.20-5.50); Red Cell Distribution Width 13.9 % (11.0-16.0); White Blood Count 10.1 X10*3/uL (4.8-10.8)
[2022-06-04 06:22] LABS: Anion Gap 15 (12-20); Blood Urea Nitrogen 13 mg/dL (9-16); Calcium 8.3 mg/dL (8.4-10.2); Carbon Dioxide 20 mmol/L (22-29); Chloride 105 mmol/L (96-108); Cholesterol 193 mg/dL; Creatinine Clr Calc Pharmacy 40.9; Estimated Glomerular Filt Rate 43; Glucose Random 148 mg/dL (60-115); HDL Cholesterol 41 mg/dL; LDL Cholesterol Calculated 107 mg/dl; Potassium 3.6 mmol/L (3.3-5.1); Sodium 136 mmol/L (135-145); Triglycerides 227 mg/dL
[2022-06-04 06:24] LABS: Alanine Aminotransferase 10 U/L (0-31); Albumin Level 3.7 g/dL (3.5-5.0); Alkaline Phosphatase 84 U/L (39-117); Aspartate Amino Transferase 13 U/L (5-31); Bilirubin Direct 0.2 mg/dL (0.0-0.5); Bilirubin Total 0.5 mg/dL (0.0-1.0); Total Protein 6.1 g/dL (6.5-8.0)
--- NOTE | 2022-06-04 07:00 | CA_ITS ---
Transthoracic Echocardiogram Patient (Last, First, Middle): Deepika Nieto, Gender: Female Date of : 1945 Age: 76 Procedure Date: 06/04/2022 Procedure Type: Transthoracic Echocardiogram Location: ICU Height: 162.56 cm Weight: 81.65 kg BSA: 1.87 m2 Heart Rate: bpm BP: 125 / 62 mmHg Soils Analyst: Referring MD: Eduard VALENZUELA Director Web: Jose Alfredo Cain MD Symptoms: stroke post tpa Study Quality: Adequate ECG Rhythm: Sinus Conclusions: - 1. Normal LV systolic function with moderate LVH with impaired relaxation filling pattern 2. Cardiac valvular Doppler within normal limits 3. Normal RV systolic pressure 4. No gross pericardial effusion Findings Left Ventricle Normal left ventricular size and systolic function. There is moderately increased left ventricular wall thickness. The visually estimated ejection fraction is between 65-70%. Spectral Doppler is indicative of an impaired relaxation filling pattern. E/E prime ratio is between 8 and 15 consistent with indeterminate filling pressures. Right Ventricle Normal right ventricular cavity size. There is normal right ventricular systolic function. Atria The left atrium is normal in size. Interatrial shunt cannot be excluded. The right atrium was not well visualized. Aortic Valve The aortic valve structure and function is likely normal. There is no aortic valve stenosis. There is no aortic valve regurgitation. Mitral Valve Likely normal mitral valve structure and function. There is trace mitral valve regurgitation. There is no mitral valve stenosis. Pulmonic Valve The pulmonic valve was not well visualized. Tricuspid Valve Likely normal tricuspid valve structure and function. There is trace tricuspid valve regurgitation. The right ventricular systolic pressure is normal. The right ventricular systolic pressure is 16 mmHg. There is no evidence of pulmonary hypertension. Great Vessels All visible segments of the aorta are normal in size. The pulmonary artery was not well visualized. Venous The inferior vena cava is normal in size and collapses greater than 50% with inspiration. Pericardium/Pleural There is no evidence of pericardial effusion. Prior Study Comparison No prior study available for comparison. Recommendations, Care & Conclusions Consider a JAMES if clinically appropriate. Recommend contrast in the future to improve endocardial definition. Measurements 2D Linear Measurements IVSd: 1.47 0.6-0.9/0.6-1.0 cm LVIDd: 3.98 3.9-5.3/4.2-5.9 cm LVIDd Index: 2.13 2.4-3.2/2.2-3.1 cm/m2 LVIDs: 2.52 2.0-3.6 cm LVPWd: 1.40 0.7-1.1 cm Ao Root: 3.00 2.1-3.5 cm LA Diam: 3.60 2.7-3.8/3.0-4.0 cm LAIDs Index: 1.93 1.5-2.3 cm/m2 LV Mass: 268.71 67-162/88-224 g LV Mass Index: 143.69 43-95/49-115 g/m2 LVOT Diam: 2.00 3.0+(-)1.3 cm 2D Systolic Function EF 4C: 75.20 >55% EF 2C: 66.90 >55% EF BiP: 71.60 >55% Mitral Valve MV Pk E: 0.58 MV PK A: 0.92 MV Decel Time: 230.00 E/A: 0.60 E'Lateral: 5.66 E'Medial: 6.20 E/E' Med: 9.40 E/E' Lat: 10.30 PHT: 67.00 MVA PHT: 3.28 Decel Leake: 2.53 Aortic Valve AoV Pk Jhonatan: 1.61 AoV Mn Jhonatan: 1.03 AoV VTI: 0.37 AoV Pk Grad: 10.00 Aov Mn Grad: 5.00 RUMA Cont.VTI: 2.41 LVOT LVOT Pk Jhonatan: 1.18 LVOT Mn Jhonatan: 0.74 LVOT VTI: 0.28 LVOT Pk Grad: 6.00 LVOT Mn Grad: 3.00 LVOT Diam: 2.00 LVOT Area: 3.14 Diastolic Function MV Pk E: 0.58 MV Pk A: 0.92 E/A: 0.60 E'Medial: 6.20 E/E' Med: 9.40 E' Laterial: 5.66 E/E' Lat: 10.30 Right Ventricle TAPSE (mm): 20.00 TVS' Jhonatan: 12.00 Tricuspid Valve TR Pk Jhonatan: 1.82 TR Pk Grad: 13.00 RA Press: 3.00 RVSP: 16.00 Great Vessels Aorta Ao Root-2D: 3.00 2.0-3.7 cm Ao Asc: 2.90 2.1-3.4 cm Pulmonary Valve PV Pk Jhonatan: 0.94 Peak PV Grad: 4.00 Updated in Other Vendor System with Status of Final Jose Alfredo Cain MD electronically signed on 06/04/2022 11:28:47 AM with status of Final
[2022-06-04 07:26] LABS: Glucose, Whole Blood 108 mg/dL (60-115)
[2022-06-04] MEDS: 0.9 % Sodium Chloride Flush 3 ML SYRINGE IVFLUSH ×3 (08:07→21:04)
--- NOTE | 2022-06-04 09:53 | PM.CCPN ---
Subjective Subjective Date of Service: 06/04/22 Interval History: Mr. Nieto was admitted to ICU last night after tPA was administered in the ED for stroke. The patient is a 76-year-old woman with history of hypertension, who had been experiencing lightheadedness for approximately 1 month and had gone to the primary care physician who initially thought it was related to her blood pressure medication took her off it for about a month.? Symptoms continued, and she was diagnosed with benign positional vertigo.? But her symptoms did not resolve.? Yesterday while at home, she woke up from a nap approximately at 130 pm, started to feel some weakness of the left upper > left lower extremity, w problems walking.? Also felt a weird sensation in her face, she was also having difficulty expressing herself.? So her daughter called 911. On arrival to the emergency room, the patient was noted to have left facial droop, and left upper and lower extremity weakness, and slurred speech.? Head CT was negative, showed chronic small vessel ischemia and white matter changes with small prior lacunar infarcts in the right basal ganglia and left escudero radiata.? Head and neck CTA showed minimal atheromatous calcification in the neck vasculature, with no flow-limiting stenoses; no vascular malformations or aneurysms; mild irregular caliber in the posterior cerebral arteries with no focal occlusions. Dr. Abreu was consulted and the patient was given tPA.? She was also given IV labetalol for blood pressure greater than 180.? Subsequently, the patient's symptoms improved and by the evening her facial droop was much improved, her speech was almost normal, and the weakness of her left side was much better.? On ICU exam, LUE was 2+/5, left hand fiscal clerk was 3/5, LLE was 3+/5. Overnite course last night was notable for difficult to control blood pressure, running 180-199.? She was given labetolol 100 mg at 11pm.? BP dropped as low as 125/62 this morning. On exam this morning, patient is fully awake, alert, and appropriate.? Her speech is somewhat halting, but the words come out okay.? She has a very trace left facial droop.? Tongue protrusion is midline.? No other cranial nerve deficits.? She complains that her left arm and leg are weaker than they were last night.? On testing, she is just antigravity in both her left upper and lower extremity.? About 1/5 on both.? Hand on the left fiscal clerk is about 1+/5.? At the left ankle, dorsiflexion is about 4/5, plantar flexion is 4+/5.? Physical exam is otherwise unremarkable.? She is breathing easy with sat 99% on room air.? HR 69, BP 136/70.? (We?re holding the losartan she is on at home.)? No JVD, no edema. LABORATORY DATA:? Below.? Glucose is running slightly high. IMAGING:? Brain MR scan shows a small acute lacunar infarct involving the posterior limb of the right internal capsule. Scattered chronic small vessel ischemic changes are also visualized. No evidence of acute hemorrhage IMPRESSION: 76-year-old woman with uncontrolled hypertension who suffered a right internal capsule ischemic infarction.? Had initial improvement after the tPA but then regressed.? No bleed on MR scan.? The main thing to do now is to keep her blood pressure up.? Hold on her home valsartan. Regular diet and physical therapy. Stable for transfer to [facility].? I will sign out to the hospitalists. Critical Care Time (minutes): 0 Physical Exam Vital Signs: Vital Signs: Last Vital Signs Temp 97.7 F 06/04/22 08:00 Pulse 74 06/04/22 09:00 Resp 14 06/04/22 09:00 BP 140/54 H 06/04/22 09:00 Pulse Ox 98 06/04/22 09:00 O2 Del Method 06/04/22 09:00 O2 Flow Rate 2 06/04/22 06:30 BMI result Body Mass Index 30.9 Objective Data Labs CBC & Chem 7: 06/04/22 05:28 06/04/22 05:28 Labs: Laboratory Results - last 24 hr 06/03/22 06/03/22 06/03/22 14:18 14:21 14:50 WBC 7.5 RBC 4.58 Hgb 12.9 Hct 39.3 MCV 85.8 MCH 28.2 MCHC 32.8 RDW 13.7 Plt Count 211 MPV 8.3 L Immature Gran % (Auto) 0.4 Neut % (Auto) 52.5 Lymph % (Auto) 34.1 [place] % (Auto) 9.4 Eos % (Auto) 3.2 Baso % (Auto) 0.4 Lymph # (Auto) 2.6 [place] # (Auto) 0.7 Eos # (Auto) 0.2 Baso # (Auto) 0.0 Abs Immat Gran (auto) 0.03 Absolute Neuts (auto) 4.0 Absolute Nucleated RBC 0.000 Nucleated RBC % (auto) 0.0 PT Whole Blood PT 11.3 INR Whole Blood INR 0.9 Sodium Potassium Chloride Carbon Dioxide Anion Gap BUN Creatinine Estim Creat Clear Calc Estimated GFR POC Glucose 131 H Random Glucose Calcium Total Bilirubin Direct Bilirubin AST ALT Alkaline Phosphatase Troponin I High Sens Total Protein Albumin Triglycerides Cholesterol LDL Cholesterol, Calc HDL Cholesterol COVID-19 (GENE) COVID-19 Clin Com 06/03/22 06/03/22 06/03/22 14:50 14:50 14:50 WBC RBC Hgb Hct MCV MCH MCHC RDW Plt Count MPV Immature Gran % (Auto) Neut % (Auto) Lymph % (Auto) [place] % (Auto) Eos % (Auto) Baso % (Auto) Lymph # (Auto) [place] # (Auto) Eos # (Auto) Baso # (Auto) Abs Immat Gran (auto) Absolute Neuts (auto) Absolute Nucleated RBC Nucleated RBC % (auto) PT 11.0 Whole Blood PT INR 1.0 Whole Blood INR Sodium 136 Potassium 3.9 Chloride 104 Carbon Dioxide 24 Anion Gap 12 BUN 14 Creatinine 1.25 Estim Creat Clear Calc 40.2 Estimated GFR 42 POC Glucose Random Glucose 124 H Calcium 8.3 L Total Bilirubin Direct Bilirubin AST ALT Alkaline Phosphatase Troponin I High Sens < 3.5 Total Protein Albumin Triglycerides Cholesterol LDL Cholesterol, Calc HDL Cholesterol COVID-19 (GENE) COVID-19 Clin Com 06/03/22 06/03/22 06/04/22 14:56 21:27 05:28 WBC RBC Hgb Hct MCV MCH MCHC RDW Plt Count MPV Immature Gran % (Auto) Neut % (Auto) Lymph % (Auto) [place] % (Auto) Eos % (Auto) Baso % (Auto) Lymph # (Auto) [place] # (Auto) Eos # (Auto) Baso # (Auto) Abs Immat Gran (auto) Absolute Neuts (auto) Absolute Nucleated RBC Nucleated RBC % (auto) PT Whole Blood PT INR Whole Blood INR Sodium Potassium Chloride Carbon Dioxide Anion Gap BUN Creatinine Estim Creat Clear Calc Estimated GFR POC Glucose 113 Random Glucose Calcium Total Bilirubin 0.5 Direct Bilirubin 0.2 AST 13 ALT 10 Alkaline Phosphatase 84 Troponin I High Sens Total Protein 6.1 L Albumin 3.7 Triglycerides Cholesterol LDL Cholesterol, Calc HDL Cholesterol COVID-19 (GENE) Negative COVID-19 Clin Com See Note 06/04/22 06/04/22 06/04/22 05:28 05:28 07:22 WBC 10.1 RBC 4.24 Hgb 12.0 Hct 36.8 L MCV 86.8 MCH 28.3 MCHC 32.6 RDW 13.9 Plt Count 199 MPV 8.5 L Immature Gran % (Auto) 0.5 H Neut % (Auto) 63.7 Lymph % (Auto) 24.8 [place] % (Auto) 8.4 Eos % (Auto) 2.1 Baso % (Auto) 0.5 Lymph # (Auto) 2.5 [place] # (Auto) 0.9 Eos # (Auto) 0.2 Baso # (Auto) 0.1 Abs Immat Gran (auto) 0.05 H Absolute Neuts (auto) 6.4 Absolute Nucleated RBC 0.000 Nucleated RBC % (auto) 0.0 PT Whole Blood PT INR Whole Blood INR Sodium 136 Potassium 3.6 Chloride 105 Carbon Dioxide 20 L Anion Gap 15 BUN 13 Creatinine 1.23 Estim Creat Clear Calc 40.9 Estimated GFR 43 POC Glucose 108 Random Glucose 148 H Calcium 8.3 L Total Bilirubin Direct Bilirubin AST ALT Alkaline Phosphatase Troponin I High Sens Total Protein Albumin Triglycerides 227 Cholesterol 193 LDL Cholesterol, Calc 107 HDL Cholesterol 41 COVID-19 (GENE) COVID-19 Clin Com Quality Stroke Does the patient have a stroke diagnosis?: Yes Reason for No Anti-thrombotic by Day Two: N/A - Med Ordered VTE Prior VTE?: No VTE Risk Level:: Medical - moderate - high VTE Device Contraindication: N/A - Device Ordered VTE Drug Contraindication: Treatment Not Indicated
--- NOTE | 2022-06-04 11:23 | P.CNNE_ITS ---
History of Present Illness Data of Consult Service Date: 06/04/22 Primary Care Provider: Yeyo Gore MD [facility] Reason for consult: Stroke 76 years old who I saw yesterday in emergency room with acute stroke, which was treated with intravenous tPA. She said that today she was feeling somewhat worse than yesterday but no new symptom is appeared. She had the MRI. Review of Systems Review of Systems: No headache nausea vomiting. No dizziness PMFSH Past Medical History Medical History (Updated 06/04/22 @ 11:25 by Josh Abreu MD) Facial tic HTN (hypertension) Social History Social History Household Members: Children Housing: House Do you presently have visiting nurse or other home services: No Alcohol intake: never Patient Tobacco Use Status: Former Tobacco user Smoked in Last 30 Days: Yes Use of substances other than those prescribed or required for medical reasons: No Have you been hit, kicked, punched, or otherwise hurt by someone within the past year? If so, by whom?: No Do you feel safe in your current relationship?: No Current Relationship Is there a partner from a previous relationship who is making you feel unsafe no w?: No Are you made to feel afraid or neglected: No Advance Directives: No Advance Directives Information Provided: No Do you have thoughts of harming others: None Do you have a plan to hurt others: No Plan Recently lost weight without trying: No Nutrition Risks: No Nutritional Risk Patient : No Meds Allergies Allergy/AdvReac Type Severity Reaction Status Date / Time No Known Allergies Allergy Verified 06/03/22 14:17 Active Medications: Current Medications Omeprazole (Omeprazole 20 Mg/10 Ml Susp.Recon) 40 mg PO DAILY@0630 [facility] Last Admin: 06/04/22 06:11 Dose: 40 mg Sodium Chloride (0.9 % Sodium Chloride Flush 3 Ml Syringe) 3 ml IVFLUSH QSHIFT [facility] Last Admin: 06/04/22 08:07 Dose: 3 ml Tobramycin Sulfate (Tobramycin Sulfate 0.3% Lashay Op 5 Ml Btl) 2 drop EYE-BOTH TID [facility] Last Admin: 06/03/22 21:31 Dose: 2 drop Home Medications Medication Instructions Recorded Confirmed Last Taken Type losartan 50 mg tablet 1 tab DAILY 06/03/22 06/03/22 06/03/22 History prochlorperazine maleate 10 mg 1 tab PO DAILY 06/03/22 06/03/22 06/03/22 History tablet tobramycin 0.3 % eye drops 2 drp ophthalmic (eye) TID 06/03/22 06/03/22 06/03/22 History Physical Exam Vital Signs: Vital Signs: Last Vital Signs Temp 97.7 F 06/04/22 08:00 Pulse 73 06/04/22 11:00 Resp 14 06/04/22 11:00 BP 133/52 L 06/04/22 11:00 Pulse Ox 98 06/04/22 11:00 O2 Del Method 06/04/22 11:00 O2 Flow Rate 2 06/04/22 06:30 BMI result Body Mass Index 30.9 Neuro: Other: Left hemiparesis that seems slightly worse than yesterday Results Labs CBC & Chem 7: 06/04/22 05:28 06/04/22 05:28 Labs: Short CBC 06/03/22 06/04/22 Range/Units 14:50 05:28 WBC 7.5 10.1 (4.8-10.8) X10*3/uL Hgb 12.9 12.0 (12.0-16.0) g/dl Hct 39.3 36.8 L (37.0-47.0) % Plt Count 211 199 (160-400) X10*3/uL BMP 06/03/22 06/04/22 14:50 05:28 Sodium 136 136 Potassium 3.9 3.6 Chloride 104 105 Carbon Dioxide 24 20 L BUN 14 13 Creatinine 1.25 1.23 Calcium 8.3 L 8.3 L Liver Function 06/04/22 Range/Units 05:28 Total Bilirubin 0.5 (0.0-1.0) mg/dL Direct Bilirubin 0.2 (0.0-0.5) mg/dL AST 13 (5-31) U/L ALT 10 (0-31) U/L Alkaline Phosphatase 84 (39-117) U/L Albumin 3.7 (3.5-5.0) g/dL Noncontrast MRI of brain, as expected, revealed right basal ganglia, posterior limb of internal capsular, infarct. Signature was obvious on DWI and not as much on FLAIR. Moderate amount of chronic microvascular ischemic changes were noted. 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 She was treated with intravenous tPA and improved. Her speech was better. She still has mild -to-moderate left hemiparesis. At this time mainstay of management is avoiding hypotension, appropriate hydration, anti-platelet agent, statin and blood pressure control. Physical therapy and occupational therapy consultation is also recommended. She should be advised to control her blood pressure and follow through with primary care physician on regular basis. Procedures Date of Service Date of Service: 06/04/22
[2022-06-04 11:58] LABS: Glucose, Whole Blood 163 mg/dL (60-115)
[2022-06-04] MEDS: Tobramycin Sulfate 0.3% Sol Op 5 ML BTL 2 DROP EYE-BOTH ×3 (12:00→21:04)
--- NOTE | 2022-06-04 14:15 | MHC.STROKE ---
06/03/22 1407 EMS PRE-NOTIFIED STROKE ALERT LKW 1200 , TOOK A NAP WOKE AT 1330. SLURRED SPEECH, LEFT FACE, ARM LEG WEAKNESS. ARRIVED AT 1412. EXAMINED AND DIRECT TO CT, NO BLEED, CTA H/N ALSO DONE, NO LVO.NIHSS = 7. NO EXCLUSIONS FOR TPA, SEE DR. DANIELLE AND DR CAPPS'S NOTE. ISHE FAILED INITIAL SWALLOW SCREEN. TODAY I MET WITH THE PATIENT AFTER HER MRI. WE REVIEWED THE SCAN IMAGE, HER RISK FACTORS, PLAN OF CARE AND ALL ITEMS IN THE STROKE EDUCATION BOOKLET. I ANSWERED ALL OF HER QUESTIONS, SHE IS INTERESTED IN ACUTE REHAB. I WILL CONTINUE TO FOLLOW.
--- NOTE | 2022-06-04 14:29 | MHC.CM.PN ---
Meet with patient to complete Case Management assessment- see intervention for complete assessment. HCP completed- copies with patient and in chart. IMM complete and in chart. PT and OT rec Acute Inpatient Rehab- referrals placed in [facility]. CM will continue to follow patient for d/c planning needs.
[2022-06-04] MEDS: Aspirin Enteric Coated 81 MG TABLET.DR PO (15:57)
[2022-06-04 17:01] LABS: Glucose, Whole Blood 136 mg/dL (60-115)
[2022-06-04 20:15] LABS: Glucose, Whole Blood 149 mg/dL (60-115)
[2022-06-05 04:00] VITALS: BP 147/74; PULSE 81; RESP 18; TEMP 36.1; O2SAT 97
[2022-06-05 06:58] LABS: Anion Gap 12 (12-20); Blood Urea Nitrogen 17 mg/dL (9-16); Calcium 8.7 mg/dL (8.4-10.2); Carbon Dioxide 23 mmol/L (22-29); Chloride 105 mmol/L (96-108); Creatinine Clr Calc Pharmacy 38.3; Estimated Glomerular Filt Rate 40; Glucose Random 119 mg/dL (60-115); Potassium 3.8 mmol/L (3.3-5.1); Sodium 136 mmol/L (135-145)
[2022-06-05 07:23] LABS: Glucose, Whole Blood 107 mg/dL (60-115)
[2022-06-05 07:52] VITALS: BP 160/73; PULSE 76; RESP 18; TEMP 36.2; O2SAT 97
[2022-06-05 08:32] VITALS: BP 153/76; PULSE 81; O2SAT 97
[2022-06-05] MEDS: 0.9 % Sodium Chloride Flush 3 ML SYRINGE IVFLUSH (09:36)
[2022-06-05] MEDS: Aspirin Enteric Coated 81 MG TABLET.DR PO (09:36)
[2022-06-05] MEDS: Tobramycin Sulfate 0.3% Sol Op 5 ML BTL 2 DROP EYE-BOTH (09:36)
--- NOTE | 2022-06-05 10:26 | P.DS_ITS ---
DS: Providers Provider Date of Service: 06/05/22 Date of admission: 06/03/22 20:16 Primary care physician: Yeyo Gore MD DS: Diagnosis Discharge Diagnosis (1) Cerebral infarction: Status: Acute (2) Cerebrovascular accident: Status: Acute DS: Summary Hospital Course Hospital Course: Admission note HPI 76-year-old with history of hypertension, who has been experiencing lightheadedness for approximately 1 month and had gone to the primary care physician who initially thought it was related to her blood pressure medication took her off it for about a month, symptoms continued, patient was diagnosed with benign positional vertigo but her symptoms did not resolve.? Today while at home, she woke up from a nap approximately at 130 p.m. started to feel some weakness of the left upper no lower extremity more so the left lower extremity in a sling her to walk properly and feeling that her gait was deviating towards the left side, she felt a weird sensation on her face, she was also having difficulty expressing herself so she has her daughter call 911, but denies any headache, double or blurry vision, problems understanding, no falls or syncope. On arrival to the emergency room, the patient was noted to have left facial droop, left upper and left lower extremity weakness, stroke protocol was called, her overall NIH was 7, she did have a head CT which was negative for intracranial hemorrhage, chronic small vessel ischemia and white matter changes with small prior lacunar infarcts in the right basal ganglia and left escudero radiata. ?Patient also underwent a head and neck CT angiogram which showed Neurologist Dr. Abreu had been consulted, decision to administer tPA had been made, given that her blood pressure was above 180, patient received labetalol IV prior to tPA administration, patient did receiTPA around 14:30.? Since then the patient's symptoms have gotten better, her facial droop is only result, her ability speak is almost normal and they weakness of the upper and lower extremities is much better according to the patient.? Currently denies any other symptomatology as described above or in the review of systems. ?As discussed with ER physician, the patient's blood pressure is still elevated above 180, 10 mg of labetalol IV will be given in the ER prior to transfer to ICU. Hospital course The patient was admitted to ICU for tPA administration. Monitored with good response as her speech improved back to baseline, she passed bedside swallowing evaluation, left-sided weakness improved but did not to completely resolved. LUE was 3+/5, left hand sonography technologist was 3/5, LLE was 3+/5. Blood pressure was allowed to be permissive hypertensive. She received labetalol for high reading in her blood pressure dropped to 120s. Her home losartan was held during the hospital stay with blood pressure systolic reading around 150s. Started on baby aspirin and atorvastatin. Neurology team evaluated the patient and reported she has mild to moderate left- sided hemiparesis. Recommended anti-platelet agent, statin and blood pressure control.? Physical therapy and occupational therapy evaluated the patient and recommended acute rehab. She was advised to control her blood pressure and follow through with primary care physician on regular basis. Start baby aspirin daily Continue atorvastatin 80 mg at bedtime To restart blood pressure medication in 3 days or if systolic pressure above 160. Time Spent with Patient Time attestation: Total time spent providing and/or coordinating discharge services: Discharge coordination time: Greater than 30 minutes Quality: Safe Use of Opioids Does Pt have an Active Cancer Diagnosis on the Problem List?: No Quality: Stroke Does the patient have a stroke diagnosis?: Yes Reason for No Anti-thrombotic at DC: N/A - Med Ordered Reason for No Anticoagulant at DC: Drug treatment not indicated Reason Not Initiating IV-Tpa: N/A - Med Ordered Reason for No Anti-thrombotic by Day Two: N/A - Med Ordered Reason for No Statin at DC: N/A - Med Ordered Physical Exam Vital Signs: Vital Signs: Last Vital Signs Temp 97.1 F 06/05/22 07:52 Pulse 81 06/05/22 08:32 Resp 18 06/05/22 07:52 BP 153/76 H 06/05/22 08:32 Pulse Ox 97 06/05/22 08:32 O2 Del Method 06/05/22 07:52 O2 Flow Rate 2 06/04/22 06:30 BMI result Body Mass Index 30.9 Const: Other: Constitutional : Alert, oriented, not in distress Neck : Normal inspection, Supple Cardiovascular : RRR, no JVP, no lower extremity edema Respiratory : fair bilateral air entry, no crackles, wheezes or rhonchi Gastrointestinal: soft, lax, Normal bowel sounds, Non tender Skin : Warm, Dry Neurological : Alert & oriented x3, LUE was 3+/5, left hand sonography technologist was 3/5, LLE was 3+/5. Left mild facial droop. DS: Data Data Completed and Pending Labs on day of discharge: Laboratory Results - last 24 hr 06/04/22 06/04/22 06/04/22 11:55 16:57 20:11 Sodium Potassium Chloride Carbon Dioxide Anion Gap BUN Creatinine Estim Creat Clear Calc Estimated GFR POC Glucose 163 H 136 H 149 H Random Glucose Calcium 06/05/22 06/05/22 06:15 07:18 Sodium 136 Potassium 3.8 Chloride 105 Carbon Dioxide 23 Anion Gap 12 BUN 17 H Creatinine 1.31 Estim Creat Clear Calc 38.3 Estimated GFR 40 POC Glucose 107 Random Glucose 119 H Calcium 8.7 Discharge Plan Discharge Patient Disposition: Xfer Inpatient Rehab Fac Discharge Diagnosis: Acute stroke, Cerebral infarction Referrals: Yeyo Gore MD [Primary Care Provider] - 1 Week Discharge Medications: New aspirin 81 mg Tablet,Delayed Release (Dr/Ec) 81 mg PO DAILY Qty: 30 0RF Omeprazole Oral Susp [Prilosec Oral Susp] 40 mg PO DAILY@0630 30 Days 0RF atorvastatin 80 mg tablet 80 mg PO BEDTIME Qty: 30 0RF Continued tobramycin 0.3 % drops 2 drp ophthalmic (eye) TID prochlorperazine maleate 10 mg tablet 1 tab PO DAILY Held losartan 50 mg tablet 1 tab DAILY Hold Instructions: restart in 3 days or if SBP > 160s. Diet: Advance to usual diet Activity on Discharge: As tolerated Stand Alone Forms: Patient Portal Discharge page Care Plan Goals: Read below Health Concerns: Read below Plan of Treatment: Read below Assessment: You were admitted to the hospital for evaluation left-sided weakness with slurred speech. Presentation was concerning for acute stroke that was treated with thrombolytic as you were admitted to ICU for monitoring. Your symptoms improved significantly but you continue to have left-sided weakness. Evaluated by physical therapy team who recommended acute rehab placement. Start baby aspirin daily Continue atorvastatin 80 mg at bedtime To restart your blood pressure medication in 3 days or if systolic pressure above 160.
--- NOTE | 2022-06-05 10:54 | MHC.CM.PN ---
Patient has been medically cleared for dc to Acute Rehab today. Patient will dc to [facility] today at 2PM, via [facility]. Last IMM addressed on 06/04/22.Patient and her Daughter/Diamond @ [phone] are aware of and in agreement with the dc plan.
[2022-06-05 10:55] LABS: Glucose, Whole Blood 146 mg/dL (60-115)
[2022-06-05 11:44] VITALS: BP 161/94; PULSE 80; RESP 18; TEMP 36.2; O2SAT 98
[2022-06-05] MEDS: Atorvastatin Calcium 80 MG TABLET PO (12:30)
== END 2022-06-05 14:26 | DRG 62 ==
LOC: HO.ED 19:36 → HO.EDOVER 20:40 → HO.ICU 22:04 → HO.IMC 06-04 13:41
PROVIDERS: Admitting Provider Physician Assistant Medical; Emergency Provider Emergency Medicine; PCP Internal Medicine; Visit Provider Student in an Organized Health Care Education/Training Program
DX: I63.89 Other cerebral infarction (principal); G81.94 Hemiplegia, unspecified affecting left nondominant side; R29.810 Facial weakness; I10 Essential (primary) hypertension; K21.9 Gastro-esophageal reflux disease without esophagitis; R29.707 NIHSS score 7; R47.1 Dysarthria and anarthria; Z20.822 Contact with and (suspected) exposure to COVID-19; Z87.891 Personal history of nicotine dependence; Z79.899 Other long term (current) drug therapy
CPT/HCPCS: 36415; 70450; 70496; 70498; 70551; 71045; 80048; 80061; 80076; 82947; 84484; 85025; 85610; 87635; 93005; 93306; 96374; 96376; 97110; 97162; 97166; 97530; 99285; J2997; Q9967